=== PATIENT | female | born 1995 | race Caucasian/White ===

== ENCOUNTER 2019-02-10 00:11 | Inpatient (IN) ==
[2019-02-10] MEDS ORDERED: ONDANSETRON 4 MG TAB.RAPDIS PO PRN (00:19)
[2019-02-10] MEDS ORDERED: OXYTOCIN/DEXTROSE 5%-WATER 30 UNITS/500 ML BAG IV ONE ×2 (00:19→22:35)
[2019-02-10] MEDS ORDERED: RINGER'S SOLUTION,LACTATED 1,000 ML IV ONE (00:19)
[2019-02-10] MEDS: DEXTROSE 5%-LACTATED RINGERS 1,000 ML IV PRN ×3 (00:49→16:47)
--- NOTE | 2019-02-10 01:28 | HP ---
Chief Complaint - Chief Complaint Date of Service: 02/10/19 Time of Service: : Chief Complaint: elective induction of labor History of Present Illness: 23 yo at 39 5/7 weeks presents for elective induction of labor. This complicated by anemia. Rh positive Rubella immune GBS negative Medical History (Updated 11/16/18 @ 08:27 by Eileen Edwards RN) Anemia (Acute) Onset Date: 11/15/18 w/ 2019 Fracture of thumb Onset Date: ~2008 Left Gastric ulcer Onset Date: ~2013 During nursing school. No medications as of 03/10/18 [place] teeth extracted Onset Date: ~2013 Surgical History: Surgical History (Updated 03/10/18 @ 09:56 by Sweta Allan RN) History of thumb surgery Onset Date: ~2008 Left History of tonsillectomy Onset Date: ~2001 Family History: Family History (Updated 04/01/18 @ 08:33 by Eileen Edwards RN) Mother Alive and well Father Myocardial infarction, Onset Age: 52 Grandmother Lung cancer Aunt Lung cancer Social History: (Last Reviewed 02/10/19 @ 01:23 by Fredo Ruth DO) Social History: adopted: No skilled nursing: 2: 0 Marital status: household members: spouse number of children: 0 current occupational status: employed current occupation: RN Highest education level completed: Associate degree: [employer] Service: No Tobacco: Smoking Status: Never smoker Alcohol: alcohol intake: current alcohol intake frequency: a few times a week details: none with Substance Use: substance use type: does not use Dietary Habits: caffeine: Yes caffeine comment: none with Type: coffee Exercise: Physical activity type: weight lifting Moderate/strenuous exercise - number of days: 7 frequency: 1-2 times per week Shahla/Jain: agree to transfusion: Yes Personal Safety: victim of physical abuse: No victim of emotional abuse: No victim of sexual abuse: No Review Of Systems (GEN) - Review of Systems Generalized/Overall Review: Present: No Symptoms Reported EENTM: Present: No Symptoms Reported Respiratory: Present: No Symptoms Reported Cardiac: Present: No Symptoms Reported Abdominal: Present: No Symptoms Reported Genitourinary: Present: No Symptoms Reported Musculoskeletal: Present: No Symptoms Reported Neurological: Present: No Symptoms Reported Skin: Present: No Symptoms Reported Endocrine: Present: No Symptoms Reported Allergies/Adverse Reactions: Allergies Allergy/AdvReac Type Severity Reaction Status Date / Time Tetracyclines Allergy Mild Rash & Verified 02/09/19 12:12 Blurry Vision Home Medications: HOME MEDICATIONS [id number] 400 mcg-om3 35 mg-dha 25 mg-epa 5 mg-fish oil chewable tablet 2 tab PO DAILY tab 03/10/18 [Last Taken Unknown] breast pump See Dose Instructions .ROUTE .MEDSUPPLY #1 ea 09/13/18 [Last Taken Unknown] ferrous sulfate 325 mg (65 mg iron) tablet,delayed release 325 mg PO DAILY #30 tab 11/16/18 [Last Taken 02/09/19 08:00] doxylamine succinate 25 mg tablet 25 mg PO HS PRN 11/29/18 [Last Taken Unknown] ranitidine 150 mg tablet 150 mg PO PRN PRN 11/29/18 [Last Taken Unknown] wheat dextrin 3 gram/3.5 gram oral powder packet 1.5 g PO DAILY 12/28/18 [Last Taken 02/07/19] valacyclovir 1 gram tablet 1,000 mg PO DAILY #30 tab 01/25/19 [Last Taken 02/09/19 08:00] breast pump See Dose Instructions .ROUTE .MEDSUPPLY #1 ea 01/31/19 [Last Taken Unknown] Exam - Exam Constitutional: Present: Alert, Oriented x3, Cooperative, No distress ENT Exam: Present: hearing grossly normal Respiratory: Present: lungs clear, no respiratory distress Cardiovascular/Chest: Present: normal peripheral pulses, regular rate, rhythm, no edema Abdomen: Present: soft, nontender, other - gravid /Rectal: Present: Other - 2/60/-2 Extremity: Present: no pedal edema, no calf tenderness Skin Exam: Present: normal color, warm/dry, no cyanosis Neurologic: Present: alert, normal mood/affect, oriented x 3 Appearance: Present: appropriate appearance, appropriate insight Eye contact: Present: cooperative, good eye contact Thoughts: Present: normal thought pattern Diagnostic Studies: NST reactive Assessment/Plan - Assessment/Plan (1) Elective induction of labor planned Assessment: Admit for pitocin induction of labor. Epidural PRN. R/b/a to elective induction of labor discussed with patient and spouse prior to admission. All questions answered. Will proceed as discussed. Problem: Acute (2) Anemia Problem: Acute Qualifiers: Anemia type: iron deficiency Iron deficiency anemia type: inadequate dietary iron intake Qualified Code(s): D50.8 - Other iron deficiency anemias
[2019-02-10 01:41] LABS: Cocaine Ur Negative (NEGATIVE); Urine Barbiturate Negative (NEGATIVE); Urine Benzodiazepines Negative (NEGATIVE); Urine Opiates Negative (NEGATIVE); Urine PCP Negative (NEGATIVE); Urine THC Negative (NEGATIVE)
--- NOTE | 2019-02-10 06:25 | PN ---
Progess Note - Interim Date: 02/10/19 Time: 06:20 Narrative: 02/10/19 06:20 Patient rating contractions as mild Vital signs stable. Pitocin at 18 mu/min. FHT: 130 baseline, small period of time with decreased [id number] variability and questionable late deceleration. Currently good [id number] variability with accelerations -patient was out walking and there were several breaks in the tracing so she is now back in the room to better assess baby. Contractions q 2-5 min Cervix: 2/60/-2 Impression: Intrauterine at 39 5/7 weeks induction of labor Plan: Continue present plan
--- NOTE | 2019-02-10 12:17 | PN ---
Progess Note - Interim Date: 02/10/19 Time: 12:15 Narrative: 02/10/19 12:15 Patient reading her contractions is very mild Vital signs stable. Pitocin at 12 mu/min. FHT: 120 baseline, reassuring contractions q 1-3 min Cervix: 2-3/60/-2, Attempted AROM-unsuccessful Impression: Intrauterine at 39 5/7 weeks induction of labor Plan: Continue present plan
--- NOTE | 2019-02-10 17:57 | PN ---
Progess Note - Interim Date: 02/10/19 Time: 17:55 Narrative: 02/10/19 17:55 Patient rating contractions as mostly moderate Vital signs stable. Pitocin at 15 mu/min. FHT: 135 baseline, reassuring contractions q 2-3 min Cervix: 4/80/-2, AROM-clear Impression: Intrauterine at 39 5/7 weeks induction of labor Plan: Continue present plan
[2019-02-10] MEDS ORDERED: SENNOSIDES 8.6 MG TABLET PO PRN (22:35)
[2019-02-10] MEDS ORDERED: GLYCERIN/WITCH HAZEL LEAF 40 APPL BOX TP PRN (22:35)
[2019-02-10] MEDS ORDERED: BISACODYL 10 MG SUPP.RECT RC PRN (22:35)
[2019-02-10] MEDS ORDERED: oxyCODONE HCL/ACETAMINOPHEN 1 TAB TABLET PO PRN (22:35)
[2019-02-10] MEDS ORDERED: HYDROCORTISONE 30 APPL TUBE TP PRN (22:35)
[2019-02-10] MEDS ORDERED: IBUPROFEN 800 MG TABLET PO PRN (22:35)
[2019-02-10] MEDS ORDERED: BENZOCAINE/MENTHOL 81 SPRAY CAN TP PRN (22:35)
--- NOTE | 2019-02-10 22:40 | OR ---
Operative Report - Dictated Report Narrative: Spontaneous vaginal delivery of viable female at 2135 on 02/10/2019 with Apgars 9 and 9, weighing 3186 g in GREGORIA position with tight nuchal cord x1. Cord clamping delayed approximately 1 minute Placenta delivered complete, intact, with three vessel cord Estimated blood loss: Less than 50 ml Anesthesia: Epidural Lacerations: First-degree vaginal laceration (1 cm) no repair needed History for MU History for Definition: * The number of deliveries resulting in a live the patient experienced prior to current hospitalization * The previous delivery of live twins or any live multiple gestation is considered one live event. *If primagravida or nulliparous is documented select zero for the number of previous live births. Live Events: Live Events: 0
[2019-02-10] MEDS: IBUPROFEN 800 MG TABLET PO PRN (22:51)
[2019-02-11] MEDS: IBUPROFEN 800 MG TABLET PO PRN ×2 (07:24→21:00)
--- NOTE | 2019-02-11 09:25 | PN ---
Subjective - Date and Time Seen Date: 02/11/19 Time: 09:24 Objective - Vitals Vitals: Last Vital Signs Temp 36.8 C 02/11/19 07:30 Pulse 85 02/11/19 07:30 Resp 18 02/11/19 07:30 BP 113/68 02/11/19 07:30 Pulse Ox 100 02/11/19 07:30 Patient denies complaints. Breast-feeding well Lochia wnl abdomen - soft, nontender Uterus -firm, at umbilicus - 1 no calf tenderness Impression: day #1 - s/p spontaneous vaginal delivery. Plan: Continue routine care Assessment/Plan - Problems/Diagnosis (1) Elective induction of labor planned Problem: Acute (2) Anemia Problem: Acute Qualifiers: Anemia type: iron deficiency Iron deficiency anemia type: inadequate dietary iron intake Qualified Code(s): D50.8 - Other iron deficiency anemias
[2019-02-11] MEDS: PRENATAL VITS96/IRON FUM/FOLIC 1 TAB TABLET PO SCH (10:23)
[2019-02-11] MEDS: DOCUSATE SODIUM 100 MG CAPSULE PO SCH ×3 (10:23→23:39)
[2019-02-11] MEDS: FERROUS SULFATE 325 MG TABLET PO SCH (10:24)
[2019-02-12 09:28] VITALS: BP 121/71
[2019-02-12] MEDS: FERROUS SULFATE 325 MG TABLET PO SCH (09:36)
[2019-02-12] MEDS: PRENATAL VITS96/IRON FUM/FOLIC 1 TAB TABLET PO SCH (09:36)
[2019-02-12] MEDS: DOCUSATE SODIUM 100 MG CAPSULE PO SCH (09:36)
--- NOTE | 2019-02-12 11:37 | PN ---
Subjective - Date and Time Seen Date: 02/12/19 Time: 11:36 Objective - Vitals Vitals: Last Vital Signs Temp 36.7 C 02/12/19 07:20 Pulse 74 02/12/19 07:20 Resp 18 02/12/19 07:20 BP 121/71 02/12/19 07:20 Pulse Ox 100 02/12/19 07:20 Patient denies complaints. Breast-feeding well Lochia wnl abdomen - soft, nontender Uterus -firm, at umbilicus - 2 no calf tenderness Impression: day #2 - s/p spontaneous vaginal delivery. Plan: Routine discharge instructions Assessment/Plan - Problems/Diagnosis (1) Elective induction of labor planned Problem: Acute (2) Anemia Problem: Acute Qualifiers: Anemia type: iron deficiency Iron deficiency anemia type: inadequate dietary iron intake Qualified Code(s): D50.8 - Other iron deficiency anemias
[2019-02-12] MEDS: IBUPROFEN 800 MG TABLET PO PRN (13:28)
== END 2019-02-12 14:30 | disposition home or self-care (01) | DRG 807 ==
LOC: OB 00:11 → MS 02-11 17:31
PROVIDERS: ADMIT Obstetrics & Gynecology; ATTEND Obstetrics & Gynecology
CPT/HCPCS: 59025; 80307